=== PATIENT | female | born 1985 | race Two or more races ===

== ENCOUNTER 2018-11-22 13:43 | Emergency (ER) | payer SELFPAY ==
[~2018-11-22] VITALS: Ht 157.5 cm; Wt 72.6 kg
[2018-11-22] MEDS: ACETAMINOPHEN 325 MG TABLET PO ONE (14:30)
[2018-11-22] MEDS ORDERED: ACETAMINOPHEN ES 500 MG TABLET ONE (14:40)
--- NOTE | 2018-11-22 14:53 | NUR ---
WHEELED OUT VIA [facility] FOR CT SCAN
--- NOTE | 2018-11-22 15:25 | NUR ---
CALLED [facility] JIMENEZ REGARDING COMPLETING PT'S POLICE REPORT. VOICEMAIL WAS LEFT.
--- NOTE | 2018-11-22 16:04 | NUR ---
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
--- NOTE | 2018-11-22 16:55 | NUR ---
PATIENT NOT ABLE TO WAIT FOR MACHINE SPECIALIST IN THE ER TO DO INVESTIGATION. DECIDED TO BE DISCHARGED. PER PATIENT, SHE WILL FOLLOW UP AND REPORT TO THE POLICE HERSELF.
--- NOTE | 2018-11-22 16:57 | NUR ---
Patient discharged to home in stable condition. Written and verbal after care instructions given. Patient verbalizes understanding of instruction.
[2018-11-22 16:58] VITALS: BP 125/97
== END 2018-11-22 17:00 | disposition home or self-care (01) ==
LOC: ER 13:48
DX: S10.83XA Contusion of other specified part of neck, initial encounter (principal); S20.222A Contusion of left back wall of thorax, initial encounter; S20.221A Contusion of right back wall of thorax, initial encounter; S00.83XA Contusion of other part of head, initial encounter; M25.511 Pain in right shoulder; M25.512 Pain in left shoulder; R07.81 Pleurodynia; Y08.89XA Assault by other specified means, initial encounter; Y93.89 Activity, other specified; Y92.89 Other specified places as the place of occurrence of the external cause; Y99.8 Other external cause status
CPT/HCPCS: 70486-TC; 71111-TC; 72125-TC; 73030-TC; 84703-TC

== ENCOUNTER 2022-12-25 16:39 | Emergency (ER) | payer MEDICAID ==
[~2022-12-25] VITALS: Ht 167.6 cm; Wt 72.6 kg
[2022-12-25] MEDS ORDERED: CIPR7.5D9 EACH EAR (17:32)
[2022-12-25 17:41] VITALS: BP 133/64; TEMP 98; O2SAT 100
== END 2022-12-25 17:42 | disposition home or self-care (01) ==
LOC: ER 16:50
DX: H60.93 Unspecified otitis externa, bilateral (principal); Z79.899 Other long term (current) drug therapy; Z60.2 Problems related to living alone

== ENCOUNTER 2024-01-27 23:14 | Emergency (ER) | payer MEDICAID, OTHER ==
[~2024-01-27] VITALS: Ht 157.5 cm; Wt 72.6 kg
[~2024-01-27 23:14] MED LIST: CIPR7.5D9 EACH EAR
[2024-01-28 00:15] VITALS: BP 149/91; TEMP 98.2
[2024-01-28] MEDS ORDERED: CIPR10DR LEFT EAR (00:23)
[2024-01-28 01:14] VITALS: O2SAT 98
== END 2024-01-28 01:15 | disposition home or self-care (01) ==
LOC: ER 23:18
DX: H60.92 Unspecified otitis externa, left ear (principal); H92.02 Otalgia, left ear; Z60.2 Problems related to living alone

== ENCOUNTER 2024-01-29 23:03 | Emergency (ER) | payer OTHER ==
[~2024-01-29] VITALS: Ht 157.5 cm; Wt 72.6 kg
[~2024-01-29 23:03] MED LIST changes: +CIPR10DR LEFT EAR
[2024-01-30] MEDS ORDERED: CEPH500T PO (01:26)
[2024-01-30] MEDS ORDERED: ONDA4TAB11 PO (01:26)
[2024-01-30] MEDS ORDERED: OXYC-133 PO (01:26)
[2024-01-30] MEDS ORDERED: HYDROMORPHONE INJ 2 MG/ML DISP.SYRIN ONE (01:29)
[2024-01-30] MEDS ORDERED: ONDANSETRON 4 MG TAB.RAPDIS ONE (01:30)
[2024-01-30] MEDS: ONDANSETRON 4 MG TAB.RAPDIS SL ONE (01:38)
[2024-01-30] MEDS: HYDROMORPHONE INJ 2 MG/ML DISP.SYRIN IM ONE (01:38)
[2024-01-30 01:44] VITALS: BP 132/80; TEMP 99.1; O2SAT 99
== END 2024-01-30 01:46 | disposition home or self-care (01) ==
LOC: ER 23:42
DX: H60.92 Unspecified otitis externa, left ear (principal); Z60.2 Problems related to living alone
CPT/HCPCS: 99283; 96372; J1171; Q0162

== ENCOUNTER 2024-11-06 22:34 | Emergency (ER) | payer OTHER ==
[~2024-11-06] VITALS: Ht 157.5 cm; Wt 63.5 kg
[~2024-11-06 22:34] MED LIST changes: +CEPH500T PO; +ONDA4TAB11 PO; +OXYC-133 PO
[2024-11-07] MEDS ORDERED: IBUPROFEN 600 MG TABLET ONE (00:01)
[2024-11-07] MEDS ORDERED: TDAP [DIPH/PERTUSSIS/TET] 0.5 ML VIAL IM ONE (00:02)
[2024-11-07] MEDS: IBUPROFEN 600 MG TABLET PO ONE (00:07)
[2024-11-07] MEDS: TDAP [DIPH/PERTUSSIS/TET] 0.5 ML VIAL IM ONE (00:09)
[2024-11-07] MEDS ORDERED: CEPH-570 PO (02:17)
[2024-11-07] MEDS ORDERED: IBUP-1490 PO (02:17)
[2024-11-07 02:31] VITALS: BP 137/85; TEMP 98.4; O2SAT 98
== END 2024-11-07 02:31 | disposition home or self-care (01) ==
LOC: ER 22:45
DX: S61.531A Puncture wound without foreign body of right wrist, initial encounter (principal); R20.0 Anesthesia of skin; Z60.2 Problems related to living alone; W26.0XXA Contact with knife, initial encounter; Y93.89 Activity, other specified; Y92.090 Kitchen in other non-institutional residence as the place of occurrence of the external cause; Y99.8 Other external cause status
CPT/HCPCS: 73110; 90715